=== PATIENT | male | born 1985 | race African-American/Black ===

== ENCOUNTER 2019-07-02 07:54 | Emergency (ER) | payer OTHER ==
[~2019-07-02] VITALS: Ht 182.9 cm; Wt 90.7 kg
[2019-07-02] MEDS ORDERED: ULTRAM 50MG TAB50 MG PO (10:27)
[2019-07-02 10:46] VITALS: BP 129/87
== END 2019-07-02 10:47 | disposition home or self-care (01) ==
LOC: ER 07:54
DX: S46.911A Strain of unspecified muscle, fascia and tendon at shoulder and upper arm level, right arm, initial encounter (principal); F17.210 Nicotine dependence, cigarettes, uncomplicated; Z98.890 Other specified postprocedural states; X50.0XXA Overexertion from strenuous movement or load, initial encounter; Y93.89 Activity, other specified; Y92.89 Other specified places as the place of occurrence of the external cause; Y99.9 Unspecified external cause status